=== PATIENT | female | born 1990 | race Caucasian/White ===

== ENCOUNTER 2023-11-25 09:07 | Outpatient (AMB) | payer BC, SELFPAY ==
[2023-11-25 09:13] VITALS: BP 118/78; PULSE 59; RESP 13; TEMP 36.6; O2SAT 99; BMI 24.4
--- NOTE | 2023-11-25 09:13 | A.OFFPC_ITS ---
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 JAWBONE BREAKER at [facility] in [facility] Last office visit/CPE: Aug 2022 Acute issue(s): Abd pain to L of Umbilicus. Intermittent L back & shoulder PMHx: Transgender, Hypothyroidism, anxiety, SurgHx: gender reassign, Tonsils FHx: Mom: DM, Dad: HTN, HLD. GF Lung CA SocHx: Nonsmoker, EtOH: 1 gl occassionally, No drugs PFSH Medical History (Updated 11/25/23 @ 09:49 by Carlos Pepe) Depression Anxiety Generalized headaches Shoulder injury Frequent urination Surgical History (Updated 11/25/23 @ 09:26 by DMITRY Nina) H/O vaginoplasty Hx of tonsillectomy Family History Mother Diabetes Father High blood pressure High cholesterol Maternal Grandmother Diabetes Paternal Grandmother Diabetes Maternal Grandfather Diabetes Cancer Paternal Grandfather Lung cancer Social History Housing: Apartment Alcohol intake: current Comment: wine Patient Tobacco Use Status: Never used Tobacco e-Cigarette/Vaping Use: Never Used Substance Use Type: Marijuana service: No Current occupational status: employed 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 1. Little interest or pleasure in doing things: several days 2. Feeling down, depressed, or hopeless: several days 3. Trouble falling or staying asleep, or sleeping too much: more than half the days 4. Feeling tired or having little energy: nearly every day 5. Poor appetite or overeating: not at all 6. Feeling bad about yourself - or that you are a failure or have let yourself or your family down: several days 7. Trouble concentrating on things, such as reading the newspaper or watching television: several days 8. Moving or speaking so slowly that other people could have noticed. Or the opposite - being so fidgety or restless that you have been moving around a lot more than usual: more than half the days 9. Thoughts that you would be better off or of hurting yourself in some way: not at all Total score: 11 Depression Screening Interpretation: Positive Depression Screening Follow-up: In treatment Depression Screening Done: Yes [id number] - PHQ-9 Billing: Yes Source: Developed by Drs. Krystian New, Lolita Herrera, Neville Maldonado and colleagues, with an educational elle from [email or web address]. Thrive Questionnaire Date Thrive assessed: 11/25/23 I am a: Patient What is your living situation today?: I have a steady place to live Within the past 12 months, did the food you bought not last and you didn't have the money to get more?: Never true Within the past 12 months, did you worry whether your food would run out before you got money to buy more?: Never true Do you have trouble paying for medicines?: No Do you have trouble getting transportation to medical appointments?: No Do you have trouble paying your heating and electricity bill?: No Do you have trouble taking care of your child, family member or friend?: No Do you have trouble with day-to-day activities such as bathing, preparing meals, shopping, managing finances, etc.?: No Are you currently unemployed and looking for a job?: No Are you interested in more education?: No Please select the resources that you would like help with: None Currently or been in a relationship where the following occur: no concerns reported THRIVE Score: 0 AUDIT C Alcohol Use Questionnaire (AUDIT-C) 1. How often do you have a drink containing alcohol?: Monthly or less 2. How many drinks containing alcohol do you have on a typical day when you are drinking?: 1 or 2 3. How often do you have six or more drinks on one occasion?: Never Total Score: 1 MARSHAL-7 AMB Questionnaire MARSHAL-7 Date MARSHAL - 7 assessed: 11/25/23 Feeling nervous, anxious, or on edge: 3 = Nearly every day Not being able to stop or control worryin = More than half the days Worrying too much about different things: 2 = More than half the days Trouble relaxin = Nearly every day Being so restless that it is hard to sit still: 3 = Nearly every day Becoming easily annoyed or irritable: 3 = Nearly every day Feeling afraid as if something awful might happen: 3 = Nearly every day Total MARSHAL-7 score (0-4 normal; 5-9 mild; 10-14 moderate; 15-21 severe): 19 Source: Developed by Drs. Krystian New, Lolita Herrera, Neville Maldonado and colleagues, with an educational elle from [email or web address]. MASRHAL-7 Assessment Billing MARSHAL-7 Assessment Tool: MARSHAL-7 Assessment 08211 Review of Systems Const Denies chills, Denies fatigue, Denies fever(s), Denies headache(s) and Denies weakness ENT Denies dizziness and Denies headache(s) Card Denies chest pain, Denies lightheadedness, Denies dyspnea and Denies other (Palpitations) Resp Denies cough, Denies dyspnea, Denies wheezing and Denies other ( shortness of breath) GI Reports abdominal pain (intermittent) Musc Denies numbness and Denies tingling Neuro Denies dizziness, Denies headache(s), Denies numbness, Denies tingling, Denies paresthesias and Denies weakness Psych Reports anxiety and Reports depression Endo Denies fatigue Aller/Immun Denies wheezing Physical exam (Primary Care) Vital Signs: Last Vital Signs Temp 97.8 F 11/25/23 09:13 Pulse 59 04/02/24 09:13 Resp 13 11/25/23 09:13 BP 118/78 11/25/23 09:13 Pulse Ox 99 11/25/23 09:13 Oxygen Delivery Method Room Air 11/25/23 09:13 BMI result Body Mass Index 24.4 Tobacco/Smoking Status: Tobacco use Status Tobacco use date assessed 11/25/23 11/25/23 09:24 Patient Tobacco Use Status Never used Tobacco 11/25/23 09:24 e-Cigarette/Vaping Use Never Used 11/25/23 09:24 PHQ-9: PHQ-9 Score PHQ-9: Total score 11 11/25/23 09:31 Depression Screening Interpretation: Positive Depression Screening Follow-up: In treatment Thrive Assessment: Date of Thrive Assessment Date Thrive assessed 11/25/23 11/25/23 09:31 Currently or been in a relationship where the following occur: no concerns reported Const General: no acute distress and well developed Nutritional Appearance: well nourished Orientation/consciousness: patient oriented x3 HENMT Head: Yes normocephalic and Yes atraumatic Eyes General: appearance normal, both eyes and all related structures Pupils: Equal, round and reactive pupils present EOM: EOMs intact bilaterally Resp Effort & Inspection: normal respiratory effort Auscultation: clear to auscultation bilaterally Cardio Rate: regular rate Rhythm: regular rhythm Heart sounds: S1 normal heart sound present, S2 normal heart sound present, no gallops, no murmurs and no rubs GI Other: Focal abdominal wall pain L of midline near umbillicus Mild impulse with cough/valsalva Neuro General: patient oriented x3 and gait normal Cranial nerves: Yes Equal, round and reactive pupils present Psych Affect: normal affect Assessment and Plan Assessment & Plan (1) Abdominal pain: Code(s): R10.9 - Unspecified abdominal pain Plan: Focal?abdominal?pain?to?left?midline?at?umbilicus?level Mild?impulse?with?cough/Valsalva Concern?for?hernia Check?lab Will?follow-up?next?visit (2) Strain of left subscapularis muscle: Code(s): S46.812A - Strain of other muscles, fascia and tendons at shoulder and upper arm level, left arm, initial encounter Plan: Start?physical?therapy (3) Frequent urination: Code(s): R35.0 - Frequency of micturition Plan: Check?UA?and?culture (4) Depression with anxiety: Code(s): F41.8 - Other specified anxiety disorders Plan: Follow-up?with?therapist We?will?reassess?at?next?visit (5) Transgender: Code(s): Z78.9 - Other specified health status Plan: Medications?provided?by?[facility] Stable (6) Shoulder pain: Code(s): M25.519 - Pain in unspecified shoulder Plan: Likely?recur?Left?subscapularis?strain Start?PT (7) Hypothyroidism: Code(s): E03.9 - Hypothyroidism, unspecified Plan: History?of?hypothyroidism Patient?says?she?was?on?thyroid?hormones?for?a?short?period?of?time?as?a?teen Check?thyroid?hormone?levels (8) Back pain: Code(s): M54.9 - Dorsalgia, unspecified Plan: As?above (9) Laboratory exam ordered as part of routine general medical examination: Code(s): Z00.00 - Encounter for general adult medical examination without abnormal findings Plan: Check?lab Orders: Orders Lipid Panel Today Z00.00 - Encounter for general adult medical examination without abnormal findings Microalbumin, Random (w Creat) Today I10 - Essential (primary) hypertension TSH reflex Free T4 Today Z00.00 - Encounter for general adult medical examination without abnormal findings UA and rflx microscopic Today Z00.00 - Encounter for general adult medical examination without abnormal findings CT NG by PCR Today Z11.3 - Encounter for screening for infections with a predominantly sexual mode of transmission HIV Ab/Ag Today Z11.3 - Encounter for screening for infections with a predominantly sexual mode of transmission Hepatitis B,C Profile Today Z11.3 - Encounter for screening for infections with a predominantly sexual mode of transmission Syphilis Screen Today Z11.3 - Encounter for screening for infections with a predominantly sexual mode of transmission PT Evaluation and Treatment Today S46.812A - Strain of other muscles, fascia and tendons at shoulder and upper arm level, left arm, initial encounter US abdomen limited Today R10.9 - Unspecified abdominal pain Comprehensive [place]. Panel Fast Today Z00.00 - Encounter for general adult medical examination without abnormal findings Complete Blood Count Auto Diff Today Z00.00 - Encounter for general adult medical examination without abnormal findings Urine Culture Today R35.0 - Frequency of micturition Coding Level of Care Code New Pt Level 4 (24063) Diagnoses Abdominal pain R10.9 Strain of left subscapularis muscle S46.812A Frequent urination R35.0 Depression with anxiety F41.8 Transgender Z78.9 Shoulder pain M25.519 Hypothyroidism E03.9 Back pain M54.9 Laboratory exam ordered as part of routine general medical examination Z00.00 Additional Codes MARSHAL-7 Assessment Billing - MARSHAL-7 Assessment Tool: MARSHAL-7 Assessment 09038 ([id number])
== END 2023-11-25 10:08 | disposition home or self-care (01) ==
PROVIDERS: PCP Family Medicine; Visit Provider Family Medicine
DX: R10.9 Unspecified abdominal pain (principal); S46.812A Strain of other muscles, fascia and tendons at shoulder and upper arm level, left arm, initial encounter; R35.0 Frequency of micturition; F41.8 Other specified anxiety disorders; Z78.9 Other specified health status; M25.519 Pain in unspecified shoulder; E03.9 Hypothyroidism, unspecified; M54.9 Dorsalgia, unspecified; Z00.00 Encounter for general adult medical examination without abnormal findings
CPT/HCPCS: 96127; 99204

== ENCOUNTER 2023-12-05 08:21 | Outpatient (REF) | payer BC, SELFPAY ==
--- NOTE | ~2023-12-05 | US_ITS ---
EXAMINATION: US ABDOMEN LIMITED CLINICAL INFORMATION: Unspecified abdominal pain. COMPARISON: None available. TECHNIQUE: Real-time imaging of the area left of midline near the umbilicus with right side for comparison. Valsalva maneuver is performed. FINDINGS: The cutaneous, subcutaneous, muscular and fascial planes are unremarkable. No mass or fluid collection is seen. There is no hernia defect noted. No lymphadenopathy is noted. No foreign body is seen. US/US abdomen limited IMPRESSION: Unremarkable examination.
== END 2023-12-05 08:22 | disposition home or self-care (01) ==
LOC: HO.US 08:21
PROVIDERS: PCP Family Medicine; Visit Provider Family Medicine
DX: R10.9 Unspecified abdominal pain (principal)
CPT/HCPCS: 76705

== ENCOUNTER 2023-12-08 10:34 | Outpatient (REF) | payer BC, SELFPAY ==
[2023-12-08 11:13] LABS: MANUAL DIFF FLAG NO
[2023-12-08 11:27] LABS: Basophils Percent Auto 0.7 % (0-2); Eosinophils Absolute Auto 0.2 X10*3/uL (0.0-0.4); Eosinophils Percent Auto 4.7 % (0-4); Hemoglobin 13.1 g/dl (12.0-16.0); Imm Gran Abs Auto 0.01 X10*3/uL (0.00-0.03); Imm Gran Pct Auto 0.2 % (0.0-0.4); Lymphocytes Absolute Auto 1.8 X10*3/uL (1.2-4.9); Mean Corpuscular HGB Conc 33.6 g/dl (31.0-35.0); Mean Corpuscular Hemoglobin 29.9 pg (27.0-33.0); Mean Platelet Volume 11.4 fL (9.4-12.3); Monocytes Absolute Auto 0.5 X10*3/uL (0.1-1.2); Monocytes Percent Auto 10.1 % (2-11); Neutrophils Percent Auto 44.3 % (45-73); Platelet Count 185 X10*3/uL (160-400); Red Blood Count 4.38 X10*6/uL (4.20-5.50); Red Cell Distribution Width 12.5 % (11.0-16.0); White Blood Count 4.5 X10*3/uL (4.8-10.8)
[2023-12-08 11:48] LABS: Alanine Aminotransferase 15 U/L (0-31); Albumin Level 4.3 g/dL (3.5-5.0); Alkaline Phosphatase 46 U/L (39-117); Anion Gap 9 (12-20); Aspartate Amino Transferase 15 U/L (5-31); Bilirubin Total 0.6 mg/dL (0.0-1.0); Blood Urea Nitrogen 13 mg/dL (9-16); Calcium 9.4 mg/dL (8.4-10.2); Carbon Dioxide 28 mmol/L (22-29); Chloride 107 mmol/L (96-108); Cholesterol 135 mg/dL (<200); Estimated Glomerular Filt Rate > 60; Glucose Fasting 84 mg/dL (60-99); HDL Cholesterol 61 mg/dL (>40); LDL Cholesterol Calculated 69 mg/dL (<100); Potassium 4.4 mmol/L (3.3-5.1); Sodium 140 mmol/L (135-145); Total Protein 6.7 g/dL (6.5-8.0); Triglycerides 29 mg/dL (<150)
[2023-12-08 12:02] LABS: Syphilis Screen Nonreactive (Nonreactive)
[2023-12-08 12:10] LABS: TSH reflex Free T4 3.38 uIU/mL (0.32-4.0)
[2023-12-08 13:57] LABS: Appearance Urine Clear; Color Urine Yellow; Glucose Urine UA Negative (Negative); Leukocyte Esterase Urine Negative (Negative); Nitrite Urine Negative (Negative); PH 6.5 (5.0-9.0); Urine Blood Negative (Negative); Urine Ketones Negative (Negative); Urine Protein Negative (Neg-Trace)
[2023-12-08 14:23] LABS: Creatinine Urine 62.08 mg/dL; Microalbumin Urine < 5.0 mg/L
[2023-12-09 08:38] LABS: HBc Num1 0.16 S/CO (0.00-0.79); HBsAGNum1 0.31 S/CO (0.00-0.99); HIV AB/AG Nonreactive (Nonreactive); HIV Num 1 0.07 S/CO (0.00-0.99); Hepatitis B Core Antibody Nonreactive (Nonreactive); Hepatitis B Surface Antigen Negative (Negative); ~HepC Num1 0.12 S/CO (0.00-0.79); ~Hepatitis B Surface Antibody NONREACTIVE (Nonreactive); ~Hepatitis C Antibody Nonreactive (Nonreactive)
== END 2023-12-08 10:35 | disposition home or self-care (01) ==
LOC: HO.WFDLDS 10:34
PROVIDERS: Visit Provider Family Medicine
DX: Z00.00 Encounter for general adult medical examination without abnormal findings (principal); Z11.4 Encounter for screening for human immunodeficiency virus [HIV]; I10 Essential (primary) hypertension; R35.0 Frequency of micturition
CPT/HCPCS: 36415; 80053; 80061; 81003; 82043; 82570; 84443; 85025; 86704; 86706; 86780; 86803; 87086; 87340; 87389

== ENCOUNTER 2024-01-02 09:42 | Outpatient (AMB) | payer BC, SELFPAY ==
--- NOTE | 2024-01-02 10:03 | MHC.PC.OV ---
Vital Signs 01/02/24 10:04 Height 6 ft 1 in Weight 185 lb BMI 24.4 BP 116/70 Blood Pressure Location Lt brachial Position Sitting Pulse 63 Pulse Source Pulse Oximeter Pulse Oximetry (%) 100 Intake Visit Reasons: CPE follow up labs and health maintenance Intake Note: Patient is here for physical and to follow up on labs. Allergies peanuts Allergy (Uncoded 11/25/23 09:19) Itching Medication List - Last Reconciled 01/02/24 by Colt Fine MD estradiol cypionate 2 mg IM .QWK progesterone micronized 100 mg PO QAM Tobacco use date assessed: 01/02/24 Dental Screening Dental Screen Date: 11/25/23 HPI CPE follow up labs and health maintenance HPI Details 33-year-old?female?presents?for?complete?physical?exam Reviewed?labs?with?patient All?labs?are?okay Reviewed?ultrasound?with?patient.??She?has?supra?umbilical?abdominal?wall?discomfort.??Ultrasound?was?negative?for?hernia?though?she?still?has?a?palpable?rectus?muscle?lump. Still?has?some?scapular?muscle?pain?but?this?is?improving. [facility] Medical History (Updated 01/02/24 @ 11:01 by Colt Fine MD) Depression Anxiety Generalized headaches Shoulder injury Frequent urination Surgical History (Updated 11/25/23 @ 09:26 by DMITRY Nina) H/O vaginoplasty Hx of tonsillectomy Family History Mother Diabetes Father High blood pressure High cholesterol Maternal Grandmother Diabetes Paternal Grandmother Diabetes Maternal Grandfather Diabetes Cancer Paternal Grandfather Lung cancer Social History (Updated 11/25/23 @ 09:54 by Barbra Donaldson CMA) Housing: Apartment Alcohol intake: current Comment: wine Patient Tobacco Use Status: Never used Tobacco e-Cigarette/Vaping Use: Never Used Substance Use Type: Marijuana service: No Current occupational status: employed 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 Krystian New, Lolita Herrera, Neville Maldonado and colleagues, with an educational elle from [employer]. Review of Systems Const Denies chills, Denies fatigue, Denies fever(s), Denies headache(s) and Denies weakness Eyes Denies change in vision ENT Denies dizziness, Denies headache(s), Denies hearing loss, Denies nasal congestion, Denies sinus pain, Denies sinus pressure and Denies sore throat Card Details: Intermittent?chest?pain.??Patient?is?uncertain?if?this?is?associated?with?exertion but?sometimes?happens?with?exertion?and?sometimes?without. Reports chest pain, Denies lightheadedness, Denies dyspnea and Denies other (palpitations) Resp Denies cough, Denies dyspnea and Denies wheezing GI Reports abdominal pain (Ongoing?superficial?midline?abdominal?discomfort?above?umbilicus.?), Denies melena, Denies hematochezia, Denies change in bowel habits, Denies dyspepsia and Denies nausea Denies hematuria and Denies dysuria Musc Denies abnormal gait, Denies myalgias, Denies arthralgias, Denies numbness and Denies tingling Skin/Breast Denies rash, Denies unusual bruising and Denies wounds Neuro Denies abnormal gait, Denies dizziness, Denies headache(s), Denies memory loss, Denies numbness, Denies Sensory deficit (Neuro), Denies tingling and Denies weakness Psych Denies anxiety, Denies depression and Denies memory loss Endo Denies cold intolerance, Denies fatigue, Denies heat intolerance, Denies polydipsia and Denies polyuria Shon/Lymph Denies easy bleeding and Denies easy bruising Aller/Immun Denies wheezing Physical exam (Primary Care) Vital Signs: Last Vital Signs Pulse 63 01/02/24 10:04 BP 116/70 01/02/24 10:04 Pulse Ox 100 01/02/24 10:04 BMI result Body Mass Index 24.4 Tobacco/Smoking Status: Tobacco use Status Tobacco use date assessed 01/02/24 01/02/24 10:08 Patient Tobacco Use Status Never used Tobacco 01/02/24 10:04 e-Cigarette/Vaping Use Never Used 01/02/24 10:04 Thrive Assessment: Date of Thrive Assessment Date Thrive assessed 11/25/23 01/02/24 10:04 Const General: no acute distress, well developed, alert and awake Nutritional Appearance: well nourished Orientation/consciousness: patient oriented x3 [facility] Head: Yes normocephalic and Yes atraumatic Ears: hearing grossly normal bilaterally and TM's normal bilaterally General nose exam: Normal external nose present and Normal nares present Mouth: Normal oral and palatal mucosa present and moist mucous membranes Teeth and gingiva: dentition normal Throat: Yes posterior oropharynx normal Eyes Pupils: Equal, round and reactive pupils present and Pupil accommodation reflex normal EOM: EOMs intact bilaterally Neck Neck: Yes normal visual inspection, Yes no lymphadenopathy and Yes trachea midline Thyroid: Thyroid normal Carotids: no bruits Lymphatic: no lymphadenopathy noted Chest Chest palpation & inspection: normal inspection of the chest Resp Effort & Inspection: normal respiratory effort Auscultation: clear to auscultation bilaterally Cardio Rate: regular rate Rhythm: regular rhythm Heart sounds: S1 normal heart sound present, S2 normal heart sound present, no gallops, no murmurs and no rubs Bruits: no abdominal aortic bruits and no carotid bruits GI Other: Periumbilical/supra?umbilical?abdominal?wall?tenderness?with?rectus?muscle?lump?which?is?accentuated?by?Valsalva/cough. Palpation (GI): No Abdominal aortic bruit present, Soft to palpation, No hepatosplenomegaly present and No Rebound tenderness present Auscultation: normal bowel sounds General: Yes no CVA tenderness Back/Spine/Pelvis Back: no CVA tenderness Cervical Spine: cervical ROM normal and No Cervical spine tenderness Thoracic/Lumbar Spine: thoraco-lumbar ROM normal, No pain with thoraco-lumbar ROM, No thoracic spinal tenderness and No lumbar spinal tenderness Skin Lesions: no lesions Rashes: no rashes Trauma: no lacerations or abrasions Wounds: no wounds Nails: normal Neuro General: patient oriented x3, gait normal and CN's II-XI intact bilaterally Cranial nerves: Yes Equal, round and reactive pupils present Cognition (Neuro): normal cognition Gait exam (Neuro): Normal gait present Motor exam (neuro): 5/5 motor strength present throughout Sensory Exam: No Sensory deficit (Neuro) Deep tendon reflexes (DTR's): Right patellar reflex intensity grade: 2+ and Left patellar reflex intensity grade: 2+ Extrem General: Yes normal to inspection and No edema Psych Appearance: grossly normal Affect: normal affect Attitude: cooperative Thought process: Normal thought process present Assessment and Plan Assessment & Plan (1) Adult general medical exam: Code(s): Z00.00 - Encounter for general adult medical examination without abnormal findings Plan: 33-year-old?female?presents?for complete?physical?exam Patient?noted?a?history?of?hypothyroidism?and?brief?use?of?thyroid?medication?in?the?distant?past. No?longer?on?this?medication. Her?TSH?is?within?normal?limits (2) Chest pain: Code(s): R07.9 - Chest pain, unspecified Plan: Patient?had?vague?complaints?of?chest?pain. EKG: ?Sinus?bradycardia,?normal?axis,?no?hypertrophy,?no?ST-T-wave?changes. Reassured?patient (3) Depression with anxiety: Code(s): F41.8 - Other specified anxiety disorders Plan: Patient?has?a?therapist (4) Transgender: Code(s): Z78.9 - Other specified health status Plan: Stable?on?estradiol?and?progesterone Continue?current?regimen (5) Shoulder pain: Code(s): M25.519 - Pain in unspecified shoulder Plan: Prior?complaint?of?back?and?shoulder?pain?and?had?referred?her?for?physical?therapy. She?has?an?appointment?but?not?until?March.??However?her?pain?has?been?improving. (6) Abdominal pain: Code(s): R10.9 - Unspecified abdominal pain Plan: Periumbilical?pain with?an?apparent?rectus?abdominis?muscle?deformity?or?lump. Ultrasound?was?negative?for?hernia?but?abnormality?persists?to?palpation?and?patient?still?has?pain. Will?refer?her?to?general?surgery?for?evaluation. Orders: Referrals General Surgery Referral R10.9 - Unspecified abdominal pain Coding Level of Care Code Est Pt Prev Care 18-39y(00128) Diagnoses Adult general medical exam Z00.00 Chest pain R07.9 Depression with anxiety F41.8 Transgender Z78.9 Shoulder pain M25.519 Abdominal pain R10.9
[2024-01-02 10:04] VITALS: BP 116/70; PULSE 63; O2SAT 100; BMI 24.4
== END 2024-01-02 11:17 | disposition home or self-care (01) ==
PROVIDERS: PCP Family Medicine; Visit Provider Family Medicine
DX: Z00.00 Encounter for general adult medical examination without abnormal findings (principal); R07.9 Chest pain, unspecified; F41.8 Other specified anxiety disorders; Z78.9 Other specified health status; M25.519 Pain in unspecified shoulder; R10.9 Unspecified abdominal pain
CPT/HCPCS: 99395

== ENCOUNTER 2024-02-10 12:37 | Outpatient (AMB) | payer BC, SELFPAY ==
--- NOTE | 2024-02-10 12:39 | A.OFFVIS_ITS ---
Vital Signs 02/10/24 12:40 Height 6 ft 1 in Weight 183 lb BMI 24.1 BP 115/57 L Blood Pressure Location Rt brachial Position Sitting Pulse 91 Intake Visit Reasons: stomach pain Intake Note: This patient presents for an assessment for abdominal pain. Patient c/o; reports sharp pain near navel, reports intermittent, reports no nausea or vomiting, reports healthy weight loss, reports pain on the left shoulder which radiates towards left groin. Voice Intercept Technician Required: No Accompanied by: Self / Same As Patient Allergies peanuts Allergy (Uncoded 02/10/24 12:53) Itching HPI Comments Details: Patient presents for evaluation of left mid abdominal wall discomfort which has been going on and off for the last year. She has no other GI issues or complaints though she has occasional constipation. Never had colonoscopy before. Patient had an ultrasound of the abdominal wall was demonstrated no obvious hernias or defects Patient does occasional workouts where the discomfort is aggravated. Although not system, patient states she had an ultrasound of her gallbladder in [place] which demonstrated cholelithiasis but her symptoms are not right upper quadrant or epigastric greater around to her back. She has no fatty food intolerance per se. Chart was reviewed and patient evaluated. Patient states she is ?trans ? [facility] Medical History Depression Anxiety Generalized headaches Shoulder injury Frequent urination Surgical History H/O vaginoplasty Hx of tonsillectomy Family History Mother Diabetes Father High blood pressure High cholesterol Maternal Grandmother Diabetes Paternal Grandmother Diabetes Maternal Grandfather Diabetes Cancer Paternal Grandfather Lung cancer Social History Housing: Apartment Alcohol intake: current Comment: wine Patient Tobacco Use Status: Never used Tobacco e-Cigarette/Vaping Use: Never Used Substance Use Type: Marijuana service: No Current occupational status: employed 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 Abdomen is soft, benign. Very very small umbilical hernia palpated. No groin hernia demonstrated. Genitalia was not reveal so could not evaluate. Assessment & Plan Assessment & Plan (1) Abdominal wall pain: Code(s): R10.9 - Unspecified abdominal pain Category: Surgical Plan At present, no acute surgical issues were identified. Her symptoms may be related to abdominal wall strain from strenuous activities. Recommendation is to avoid any aggravating activities and take Tylenol or Motrin as needed. Patient we recommended recommended to follow up with her medical doctor. Should her symptoms progress or worsen, consider GI consultation. All questions answered. Patient will otherwise follow-up p.r.n.. Coding Level of Care Code New Pt Level 4 (87616) Diagnoses Abdominal wall pain R10.9
[2024-02-10 12:40] VITALS: BP 115/57; PULSE 91; BMI 24.1
== END 2024-02-10 13:22 | disposition home or self-care (01) ==
PROVIDERS: PCP Family Medicine; Visit Provider Surgery
DX: R10.9 Unspecified abdominal pain (principal)
CPT/HCPCS: 99203

== ENCOUNTER → 2024-02-10 12:37 | Outpatient (BNVA) | payer BC, SELFPAY | PROVIDERS: PCP Family Medicine; Visit Provider Surgery ==

== ENCOUNTER 2024-05-21 15:50 | Outpatient (AMB) | payer BC, SELFPAY ==
--- NOTE | 2024-05-21 16:02 | A.OFFPC_ITS ---
Vital Signs 05/21/24 16:05 Height 6 ft 1 in Weight 189 lb BMI 24.9 BP 110/70 Blood Pressure Location Lt brachial Position Sitting Respiration 16 Pulse 75 Pulse Source Pulse Oximeter Temp 98.1 F Temp Source Oral Pulse Oximetry (%) 100 Oxygen Delivery Method Room Air Intake Visit Reasons: Anxiety Intake Note: anxiety f/u Allergies peanuts Allergy (Uncoded 02/10/24 12:53) Itching Medication List - Last Reconciled 05/21/24 by Colt Fine MD estradiol cypionate 2 mg IM .QWK progesterone micronized 100 mg PO QAM Tobacco use date assessed: 01/02/24 Dental Screening Dental Screen Date: 11/25/23 HPI Anxiety HPI Details 33 y/o female presents today to f/u depr ession/anxiety. Not on any meds for mood. PHQ-9 14, MARSHAL-7 16 today. Notes she has been getting panic attacks more often recently. She notes panic attacks happen about once a week. She notices it happens a lot more when she has difficulty sleeping. She reports chest discomfort that lasts about 15 minutes. She notes she tends to notice it during exertion. HPI Comments History of Present Illness Details Documentation assistance for Colt Fine MD, was provided by Carlos Pepe, Special Needs Librarian on 05/21/2024 at 5:00 PM EST. I, Dr. Fine, have read, observed, and verified documentation. [facility] Medical History Depression Anxiety Generalized headaches Shoulder injury Frequent urination Surgical History H/O vaginoplasty Hx of tonsillectomy Family History Mother Diabetes Father High blood pressure High cholesterol Maternal Grandmother Diabetes Paternal Grandmother Diabetes Maternal Grandfather Diabetes Cancer Paternal Grandfather Lung cancer Social History Housing: Apartment Alcohol intake: current Comment: wine Patient Tobacco Use Status: Never used Tobacco e-Cigarette/Vaping Use: Never Used Substance Use Type: Marijuana service: No Current occupational status: employed Current occupation: [employer] Cognitive needs: No Hearing needs: No Vision needs: No Questionnaire PHQ-9 Over the last 2 weeks, how often have you been bothered by any of the following problems? 1. Little interest or pleasure in doing things: nearly every day 2. Feeling down, depressed, or hopeless: more than half the days 3. Trouble falling or staying asleep, or sleeping too much: nearly every day 4. Feeling tired or having little energy: more than half the days 5. Poor appetite or overeating: more than half the days 6. Feeling bad about yourself - or that you are a failure or have let yourself or your family down: more than half the days 7. Trouble concentrating on things, such as reading the newspaper or watching television: not at all 8. Moving or speaking so slowly that other people could have noticed. Or the opposite - being so fidgety or restless that you have been moving around a lot more than usual: not at all 9. Thoughts that you would be better off or of hurting yourself in some way: not at all Total score: 14 Depression Screening Interpretation: Positive Depression Screening Done: Yes 27433 - PHQ-9 Billing: Yes Source: Developed by Drs. Krystian New, Lolita Herrera, Neville Maldonado and colleagues, with an educational elle from [employer]. Thrive Questionnaire Date Thrive assessed: 11/25/23 MARSHAL-7 AMB Questionnaire MARSHAL-7 Date MARSHAL - 7 assessed: 05/21/24 Feeling nervous, anxious, or on edge: 3 = Nearly every day Not being able to stop or control worryin = Nearly every day Worrying too much about different things: 3 = Nearly every day Trouble relaxin = Nearly every day Being so restless that it is hard to sit still: 0 = Not at all Becoming easily annoyed or irritable: 2 = More than half the days Feeling afraid as if something awful might happen: 2 = More than half the days Total MARSHAL-7 score (0-4 normal; 5-9 mild; 10-14 moderate; 15-21 severe): 16 Source: Developed by Drs. Krystian New, Lolita Herrera, Neville Maldonado and colleagues, with an educational elle from [employer]. MARSHAL-7 Assessment Billing MARSHAL-7 Assessment Tool: MARSHAL-7 Assessment 85489 Review of Systems Const Denies chills, Denies fatigue, Denies fever(s), Denies headache(s) and Denies weakness ENT Denies dizziness and Denies headache(s) Card Denies dyspnea Resp Denies cough, Denies dyspnea, Denies wheezing and Denies other (shortness of breath) Musc Denies numbness and Denies tingling Neuro Denies dizziness, Denies headache(s), Denies numbness, Denies tingling and Denies weakness Psych Reports anxiety and Reports depression Endo Denies fatigue Aller/Immun Denies wheezing Physical exam (Primary Care) Vital Signs: Last Vital Signs Temp 98.1 F 05/21/24 16:05 Pulse 75 05/21/24 16:05 Resp 16 05/21/24 16:05 BP 110/70 05/21/24 16:05 Pulse Ox 100 05/21/24 16:05 Oxygen Delivery Method Room Air 05/21/24 16:05 BMI result Body Mass Index 24.9 Tobacco/Smoking Status: Tobacco use Status Tobacco use date assessed 01/02/24 05/21/24 16:08 Patient Tobacco Use Status Never used Tobacco 05/21/24 16:08 e-Cigarette/Vaping Use Never Used 05/21/24 16:08 PHQ-9: PHQ-9 Score PHQ-9: Total score 14 05/21/24 16:08 Depression Screening Interpretation: Positive Thrive Assessment: Date of Thrive Assessment Date Thrive assessed 11/25/23 05/21/24 16:08 Const General: well developed; No acute distress Nutritional Appearance: well nourished Orientation/consciousness: patient oriented x3 HENMT Head: Yes normocephalic and Yes atraumatic Eyes General: appearance normal, both eyes and all related structures Pupils: Equal, round and reactive pupils present EOM: EOMs intact bilaterally Resp Effort & Inspection: normal respiratory effort Auscultation: clear to auscultation bilaterally Cardio Rate: regular rate Rhythm: regular rhythm Heart sounds: S1 normal heart sound present, S2 normal heart sound present, no gallops, no murmurs and no rubs Neuro General: patient oriented x3 and gait normal Cranial nerves: Yes Equal, round and reactive pupils present Psych Affect: normal affect Assessment and Plan Assessment & Plan (1) Depression with anxiety: Code(s): F41.8 - Other specified anxiety disorders Plan: History?of?anxiety?and?depression. More?recently?getting?bouts?of?severe?anxiety/panic. Patient?feels?that?the?anxiety?is?generated?from?somatic?se nsations.??Will?trial?some?metoprolol. Can?try?hydroxyzine?for?more?severe?anxiety/panic Patient?has?tried?SSRIs?in?the?past?and?these?caused?GI?discomfort.??Could?consi shahab?revisiting?with?a?different?SSRI?if?the?above?is?not?helping. She?has?a?therapist?whom?she?sees?twice?a?week.??Continue?following?with?therapi st. (2) Chest pain: Code(s): R07.9 - Chest pain, unspecified Plan: Intermittent?chest?wall?pain that?last?a?few?minutes.??Can?be?associated?with?exertion?or emotional?stress. Cardiac?auscultation?normal.??Lungs?clear?to?auscultation EKG:??Normal?sinus?rhythm,?normal?axis,?no?hypertrophy,?no?ST-T-wave?changes This?does?not?appear?to?be?cardiac?in?nature.??Reassured?patient. Orders: Orders AMB EKG-In Office Today R07.9 - Chest pain, unspecified Medications: New hydroxyzine HCl 50 mg PO BID 30 days PRN 30 tabs 1RF anxiety metoprolol succinate ER 1/2 (12.5mg) to 1 (25mg) tab orally daily PRN; 30 days 30 tabs 1RF anxiety Coding Level of Care Code Est Pt Level 3 (42474) Diagnoses Depression with anxiety F41.8 Chest pain R07.9 Additional Codes MARSHAL-7 Assessment Billing - MARSHAL-7 Assessment Tool: MARSHAL-7 Assessment [id number] ([id number])
[2024-05-21 16:05] VITALS: BP 110/70; PULSE 75; RESP 16; TEMP 36.7; O2SAT 100; BMI 24.9
== END 2024-05-21 17:09 | disposition home or self-care (01) ==
PROVIDERS: PCP Family Medicine; Visit Provider Family Medicine
DX: F41.8 Other specified anxiety disorders (principal); R07.9 Chest pain, unspecified

== ENCOUNTER → 2024-05-21 15:50 | Outpatient (BNVA) | payer BC, SELFPAY | PROVIDERS: PCP Family Medicine; Visit Provider Family Medicine | DX: F41.8 Other specified anxiety disorders (principal); R07.9 Chest pain, unspecified | CPT/HCPCS: 96127 ==

== ENCOUNTER 2024-07-01 15:13 | Outpatient (AMB) | payer BC, SELFPAY ==
--- NOTE | 2024-07-01 15:28 | MHC.PC.OV ---
Vital Signs 07/01/24 15:33 Height 6 ft 1 in Weight 187 lb BMI 24.7 BP 100/66 Blood Pressure Location Lt brachial Position Sitting Respiration 14 Pulse 69 Pulse Source Pulse Oximeter Temp 98.7 F Temp Source Oral Pulse Oximetry (%) 99 Oxygen Delivery Method Room Air Intake Visit Reasons: f/u anxiety/depression Intake Note: f/u anxiety/depression Allergies peanuts Allergy (Uncoded 07/01/24 15:29) Itching Tobacco use date assessed: 01/02/24 Dental Screening Dental Screen Date: 11/25/23 HPI f/u anxiety/depression HPI Details 33 y/o female presents to f/u anxiety/depression. PHQ-9 10, MARSHAL-7 20 today. Notes she does not feel her medication regimen has been helping. Has a therapist but does not have a psychiatrist. Has complaints of ?silvana Kaur [facility] Medical History Depression Anxiety Generalized headaches Shoulder injury Frequent urination Surgical History H/O vaginoplasty Hx of tonsillectomy Family History Mother Diabetes Father High blood pressure High cholesterol Maternal Grandmother Diabetes Paternal Grandmother Diabetes Maternal Grandfather Diabetes Cancer Paternal Grandfather Lung cancer Social History Housing: Apartment Alcohol intake: current Comment: wine Patient Tobacco Use Status: Never used Tobacco e-Cigarette/Vaping Use: Never Used Substance Use Type: Marijuana service: No Current occupational status: employed 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 1. Little interest or pleasure in doing things: several days 2. Feeling down, depressed, or hopeless: several days 3. Trouble falling or staying asleep, or sleeping too much: more than half the days 4. Feeling tired or having little energy: nearly every day 5. Poor appetite or overeating: several days 6. Feeling bad about yourself - or that you are a failure or have let yourself or your family down: several days 7. Trouble concentrating on things, such as reading the newspaper or watching television: several days 8. Moving or speaking so slowly that other people could have noticed. Or the opposite - being so fidgety or restless that you have been moving around a lot more than usual: not at all 9. Thoughts that you would be better off or of hurting yourself in some way: not at all Total score: 10 Depression Screening Interpretation: Positive Depression Screening Done: Yes 26726 - PHQ-9 Billing: Yes Source: Developed by Drs. Krystian New, Lolita Herrera, Neville Maldonado and colleagues, with an educational elle from [employer]. Thrive Questionnaire Date Thrive assessed: 11/25/23 I am a: Patient What is your living situation today?: I have a steady place to live Within the past 12 months, did the food you bought not last and you didn't have the money to get more?: Never true Within the past 12 months, did you worry whether your food would run out before you got money to buy more?: Never true Do you have trouble paying for medicines?: No Do you have trouble getting transportation to medical appointments?: No Do you have trouble paying your heating and electricity bill?: No Do you have trouble taking care of your child, family member or friend?: No Do you have trouble with day-to-day activities such as bathing, preparing meals, shopping, managing finances, etc.?: No Are you currently unemployed and looking for a job?: No Are you interested in more education?: I choose not to answer this question Please select the resources that you would like help with: None Currently or been in a relationship where the following occur: No concerns reported THRIVE Score: 0 AUDIT C Alcohol Use Questionnaire (AUDIT-C) 1. How often do you have a drink containing alcohol?: Never Total Score: 0 MARSHAL-7 AMB Questionnaire MARSHAL-7 Date MARSHAL - 7 assessed: 07/01/24 Feeling nervous, anxious, or on edge: 3 = Nearly every day Not being able to stop or control worryin = Nearly every day Worrying too much about different things: 3 = Nearly every day Trouble relaxin = Nearly every day Being so restless that it is hard to sit still: 3 = Nearly every day Becoming easily annoyed or irritable: 2 = More than half the days Feeling afraid as if something awful might happen: 3 = Nearly every day Total MARSHAL-7 score (0-4 normal; 5-9 mild; 10-14 moderate; 15-21 severe): 20 Source: Developed by Drs. Krystian New, Lolita Herrera, Neville Maldonado and colleagues, with an educational elle from [employer]. MARSHAL-7 Assessment Billing MARSHAL-7 Assessment Tool: MARSHAL-7 Assessment 28518 Review of Systems Const Denies chills, Denies fatigue, Denies fever(s), Denies headache(s) and Denies weakness ENT Denies dizziness and Denies headache(s) Card Denies chest pain, Denies lightheadedness, Denies dyspnea and Denies other (Palpitations) Resp Denies cough, Denies dyspnea, Denies wheezing and Denies other ( shortness of breath) Musc Denies numbness and Denies tingling Neuro Denies dizziness, Denies headache(s), Denies numbness, Denies tingling, Denies paresthesias and Denies weakness Psych Denies anxiety and Denies depression Endo Denies fatigue Aller/Immun Denies wheezing Physical exam (Primary Care) Vital Signs: Last Vital Signs Temp 98.7 F 07/01/24 15:33 Pulse 69 07/01/24 15:33 Resp 14 07/01/24 15:33 BP 100/66 07/01/24 15:33 Pulse Ox 99 07/01/24 15:33 Oxygen Delivery Method Room Air 07/01/24 15:33 BMI result Body Mass Index 24.7 Tobacco/Smoking Status: Tobacco use Status Tobacco use date assessed 01/02/24 07/01/24 15:36 Patient Tobacco Use Status Never used Tobacco 07/01/24 15:36 e-Cigarette/Vaping Use Never Used 07/01/24 15:36 PHQ-9: PHQ-9 Score PHQ-9: Total score 10 07/01/24 15:36 Depression Screening Interpretation: Positive Thrive Assessment: Date of Thrive Assessment Date Thrive assessed 11/25/23 07/01/24 15:36 Currently or been in a relationship where the following occur: No concerns reported Const General: no acute distress and well developed Nutritional Appearance: well nourished Orientation/consciousness: patient oriented x3 [facility] Head: Yes normocephalic and Yes atraumatic Eyes General: appearance normal, both eyes and all related structures Pupils: Equal, round and reactive pupils present EOM: EOMs intact bilaterally Resp Effort & Inspection: normal respiratory effort Auscultation: clear to auscultation bilaterally Cardio Rate: regular rate Rhythm: regular rhythm Heart sounds: S1 normal heart sound present, S2 normal heart sound present, no gallops, no murmurs and no rubs Neuro General: patient oriented x3 and gait normal Cranial nerves: Yes Equal, round and reactive pupils present Psych Affect: normal affect Coding Level of Care Code Est Pt Level 3 (34536) Diagnoses Depression with anxiety F41.8 Raynauds phenomenon I73.00 Additional Codes MARSHAL-7 Assessment Billing - MARSHAL-7 Assessment Tool: MARSHAL-7 Assessment [id number] ([id number]) PHQ-9 - 45479 - PHQ-9 Billing: Yes ([id number]) Assessment & Plan Assessment & Plan (1) Depression with anxiety: Code(s): F41.8 - Other specified anxiety disorders Category: Medical Plan: Ongoing?depression?and?severe?anxiety. Patient?has?tried?SSRIs?in?the?past?without?much?help. Recently?tried?metoprolol?with?only?minimal?improvements.??Also?give?her?a?script?for?hydroxyzine?which?makes?her?too?drowsy. Will?try?buspirone We?also?briefly?discuss?second-generation?antipsychotic?and?we?could?consider?something?like?this?at?next?visit?if?the?buspirone?is?working.??However,?I?did?suggest?that?if?we?still?have?not?found?a?medication?that?is?working?by?her?next?visit, we?should?consider?a?referral?to?[facility]?psychiatric?consult?team?to?help?with?medication?management. (2) Raynauds phenomenon: Code(s): I73.00 - Raynaud's syndrome without gangrene Category: Medical Plan: Fairly?mild?symptoms?which?improve?quickly?with?warming?hands?and?feet Keep?hands?and?feet?warm.??Use?moisturizing?creams. Medications: New buspirone 5 mg PO BID 30 days 60 tabs 2RF Discontinued metoprolol succinate ER Discontinued Reason: Doctor's Order 1/2 (12.5mg) to 1 (25mg) tab orally daily PRN; 30 days 30 tabs 1RF anxiety
[2024-07-01 15:33] VITALS: BP 100/66; PULSE 69; RESP 14; TEMP 37.1; O2SAT 99; BMI 24.7
== END 2024-07-01 16:06 | disposition home or self-care (01) ==
LOC: HO.HMCFM 15:14
PROVIDERS: PCP Family Medicine; Visit Provider Family Medicine
DX: F41.8 Other specified anxiety disorders (principal); I73.00 Raynaud's syndrome without gangrene

== ENCOUNTER → 2024-07-01 15:13 | Outpatient (BNVA) | payer BC, SELFPAY | PROVIDERS: PCP Family Medicine; Visit Provider Family Medicine | DX: F41.8 Other specified anxiety disorders (principal); I73.00 Raynaud's syndrome without gangrene | CPT/HCPCS: 96127 ==

== ENCOUNTER 2024-08-31 15:30 | Outpatient (AMB) | payer BC, SELFPAY ==
--- NOTE | 2024-08-31 15:35 | A.OFFPC_ITS ---
Vital Signs 08/31/24 15:42 Height 6 ft 1 in Weight 192 lb 6 oz BMI 25.4 BP 120/70 Blood Pressure Location Rt brachial Position Sitting Respiration 14 Pulse 78 Pulse Source Pulse Oximeter Temp 97.9 F Temp Source Oral Pulse Oximetry (%) 98 Oxygen Delivery Method Room Air Intake Visit Reasons: f/u anxiety/depression (GET INS) Intake Note: f/u anxiety and depression Allergies peanuts Allergy (Uncoded 07/01/24 15:29) Itching Tobacco use date assessed: 01/02/24 Dental Screening Dental Screen Date: 11/25/23 HPI f/u anxiety/depression (GET INS) HPI Details MARSHAL- 7?still?high?but?patient?says?they?are?noticing?improvements?with?buspirone. Would?like?to?continue?it No?current?therapist?and?we?discussed?this?though?patient?declines?this?for?now Ongoing?left?lower?quadrant?pain. Patient?still?notes?they?have?not?been?great?about?drinking?water .??Have?not?tried?soluble?fiber. Had?made?a?referral?to?gastroenterology?but?the?provider?is?no?longer?practicing ?in?the?area?so?appointment?was?canceled?and?never?rescheduled. Patient?would?like?a?new?referral?preferably?in?the[place]area. Patient?also?notes?ongoing dysuria?with?urgency?and?frequency Had?worked?this?up?previously. Patient?would?like?referral?to?urology [facility] Medical History Depression Anxiety Generalized headaches Shoulder injury Frequent urination Surgical History H/O vaginoplasty Hx of tonsillectomy Family History Mother Diabetes Father High blood pressure High cholesterol Maternal Grandmother Diabetes Paternal Grandmother Diabetes Maternal Grandfather Diabetes Cancer Paternal Grandfather Lung cancer Social History (Reviewed 02/10/24 @ 12:54 by Yomaira Cox Nai Housing: Apartment Alcohol intake: current Comment: wine Patient Tobacco Use Status: Never used Tobacco e-Cigarette/Vaping Use: Never Used Substance Use Type: Marijuana service: No Current occupational status: employed 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 1. Little interest or pleasure in doing things: several days 2. Feeling down, depressed, or hopeless: several days 3. Trouble falling or staying asleep, or sleeping too much: more than half the days 4. Feeling tired or having little energy: more than half the days 5. Poor appetite or overeating: several days 6. Feeling bad about yourself - or that you are a failure or have let yourself or your family down: several days 7. Trouble concentrating on things, such as reading the newspaper or watching television: more than half the days 8. Moving or speaking so slowly that other people could have noticed. Or the opposite - being so fidgety or restless that you have been moving around a lot more than usual: not at all 9. Thoughts that you would be better off or of hurting yourself in some way: not at all Total score: 10 Depression Screening Interpretation: Positive Depression Screening Done: Yes 60367 - PHQ-9 Billing: Yes Source: Developed by Drs. Krystian New, Lolita Herrera, Neville Maldonado and colleagues, with an educational elle from [employer]. Thrive Questionnaire Date Thrive assessed: 11/25/23 I am a: Patient What is your living situation today?: I have a steady place to live Within the past 12 months, did the food you bought not last and you didn't have the money to get more?: Never true Within the past 12 months, did you worry whether your food would run out before you got money to buy more?: Never true Do you have trouble paying for medicines?: No Do you have trouble getting transportation to medical appointments?: No Do you have trouble paying your heating and electricity bill?: No Do you have trouble taking care of your child, family member or friend?: No Do you have trouble with day-to-day activities such as bathing, preparing meals, shopping, managing finances, etc.?: No Are you currently unemployed and looking for a job?: No Are you interested in more education?: No Please select the resources that you would like help with: None Currently or been in a relationship where the following occur: No concerns reported THRIVE Score: 0 AUDIT C Alcohol Use Questionnaire (AUDIT-C) 1. How often do you have a drink containing alcohol?: Monthly or less 2. How many drinks containing alcohol do you have on a typical day when you are drinking?: 1 or 2 3. How often do you have six or more drinks on one occasion?: Never Total Score: 1 MARSHAL-7 AMB Questionnaire MARSHAL-7 Date MARSHAL - 7 assessed: 08/31/24 Feeling nervous, anxious, or on edge: 2 = More than half the days Not being able to stop or control worryin = More than half the days Worrying too much about different things: 2 = More than half the days Trouble relaxin = More than half the days Being so restless that it is hard to sit still: 2 = More than half the days Becoming easily annoyed or irritable: 2 = More than half the days Feeling afraid as if something awful might happen: 3 = Nearly every day Total MARSHAL-7 score (0-4 normal; 5-9 mild; 10-14 moderate; 15-21 severe): 15 Source: Developed by Drs. Krystian New, Lolita Herrera, Neville Maldonado and colleagues, with an educational elle from [employer]. Review of Systems Const Denies chills, Denies fatigue, Denies fever(s), Denies headache(s) and Denies weakness ENT Denies dizziness and Denies headache(s) Card Denies dyspnea Resp Denies cough, Denies dyspnea, Denies wheezing and Denies other ( shortness of breath) GI Details: See?HPI Details: See?HPI Musc Denies numbness and Denies tingling Neuro Denies dizziness, Denies headache(s), Denies numbness, Denies tingling, Denies paresthesias and Denies weakness Psych Reports anxiety and Denies depression Endo Denies fatigue Aller/Immun Denies wheezing Physical exam (Primary Care) Vital Signs: Last Vital Signs Temp 97.9 F 01/07/25 15:42 Pulse 78 08/31/24 15:42 Resp 14 08/31/24 15:42 BP 120/70 08/31/24 15:42 Pulse Ox 98 08/31/24 15:42 Oxygen Delivery Method Room Air 08/31/24 15:42 BMI result Body Mass Index 25.4 Tobacco/Smoking Status: Tobacco use Status Tobacco use date assessed 01/02/24 08/31/24 15:44 Patient Tobacco Use Status Never used Tobacco 08/31/24 15:44 e-Cigarette/Vaping Use Never Used 08/31/24 15:44 PHQ-9: PHQ-9 Score PHQ-9: Total score 10 08/31/24 15:44 Depression Screening Interpretation: Positive Thrive Assessment: Date of Thrive Assessment Date Thrive assessed 11/25/23 08/31/24 15:44 Currently or been in a relationship where the following occur: No concerns reported Const General: no acute distress and well developed Nutritional Appearance: well nourished Orientation/consciousness: patient oriented x3 HENMT Head: Yes normocephalic and Yes atraumatic Eyes General: appearance normal, both eyes and all related structures Pupils: Equal, round and reactive pupils present EOM: EOMs intact bilaterally Resp Effort & Inspection: normal respiratory effort Auscultation: clear to auscultation bilaterally Cardio Rate: regular rate Rhythm: regular rhythm Heart sounds: S1 normal heart sound present, S2 normal heart sound present, no gallops, no murmurs and no rubs Neuro General: patient oriented x3 and gait normal Cranial nerves: Yes Equal, round and reactive pupils present Psych Affect: Anxious affect present (Mildly?anxious.??Pleasant?and?cooperative.) Coding Level of Care Code Est Pt Level 4 (47257) Diagnoses Depression with anxiety F41.8 Abdominal pain R10.9 Dysuria R30.0 Additional Codes PHQ-9 - 26413 - PHQ-9 Billing: Yes ([id number]) Assessment & Plan Assessment & Plan (1) Depression with anxiety: Code(s): F41.8 - Other specified anxiety disorders Category: Medical Plan: Patient?notes?that?buspirone?as?begun?to?work?though ?marshal?7?is?still?quite?high. Will?increase?dose?from?5?mg?b.i.d.?to?7.5?mg?b.i.d. They?will?let?me?know?if?there?are?any?problems?with?this. They?will?let?me?know?if?they?would?like?ref[facility]or?to?[facility]?outpatient?psychiatric?consult (2) Abdominal pain: Code(s): R10.9 - Unspecified abdominal pain Category: Medical Plan: Ongoing?left?lower?quadrant?pain Referred?to?Gastroenterology?again?as?prior?referral?was?canceled?by?the?GI?gr oup Increase?hydration Try?soluble?fiber Consider?a?symptoms?diet (3) Dysuria: Code(s): R30.0 - Dysuria Category: Medical Plan: Ongoing?dysuria?with?frequency?and?urgency Prior?workups?have?been?unrevealing Referred?to?urology CT/NG was?ordered?bu t?not?performed?by?the?lab?previously.??Patient?can?get?this?done?at?their?conve nience. Orders: Referrals Urology Referral R30.0 - Dysuria, R39.15 - Urgency of urination Gastroenterology Referral R10.9 - Unspecified abdominal pain Medications: Changed From buspirone 5 mg PO BID 30 days 60 tabs 2RF To buspirone 7.5 mg PO BID 30 days 60 tabs 2RF
[2024-08-31 15:42] VITALS: BP 120/70; PULSE 78; RESP 14; TEMP 36.6; O2SAT 98; BMI 25.4
== END 2024-08-31 16:17 | disposition home or self-care (01) ==
PROVIDERS: PCP Family Medicine; Visit Provider Family Medicine
DX: F41.8 Other specified anxiety disorders (principal); R10.9 Unspecified abdominal pain; R30.0 Dysuria

== ENCOUNTER → 2024-08-31 15:30 | Outpatient (BNVA) | payer SELFPAY | PROVIDERS: PCP Family Medicine; Visit Provider Family Medicine | DX: F41.8 Other specified anxiety disorders (principal); R10.9 Unspecified abdominal pain; R30.0 Dysuria; Z79.899 Other long term (current) drug therapy | CPT/HCPCS: 96127 ==

== ENCOUNTER → 2024-09-30 09:44 | Outpatient (BNVA) | payer BC, SELFPAY | PROVIDERS: PCP Family Medicine; Visit Provider Nurse Practitioner Family | DX: R39.15 Urgency of urination (principal); R35.0 Frequency of micturition; R30.0 Dysuria; R39.14 Feeling of incomplete bladder emptying | CPT/HCPCS: 51798; 81003 ==

== ENCOUNTER 2024-12-14 09:25 | Outpatient (REF) | payer BC, SELFPAY ==
--- NOTE | ~2024-12-14 | US_ITS ---
CLINICAL HISTORY: R30.0 - Dysuria US retroperitoneum with color Doppler Comparison: None Findings: Right kidney normal size and echotexture, 11.6 cm length. No hydronephrosis. Normal color flow. No nephrolithiasis. No renal masses. Left kidney normal size and echotexture, 11.8 cm in length. No hydronephrosis. Normal color flow. No nephrolithiasis. No renal masses. Urinary bladder is unremarkable. Prevoid volume 410.0 mL. Postvoid volume 11.3 mL. Ureteral jets are visualized bilaterally Prostate measures 2.9 x 2.1 x 2.9 cm. Prostate volume 9.4 mL Impression: 1. Normal retroperitoneal ultrasound This document has been electronically signed by: Jason Burnham MD on 12/15/2024 08:39:50
== END 2024-12-14 09:26 | disposition home or self-care (01) ==
LOC: HO.US 09:25
PROVIDERS: PCP Family Medicine; Visit Provider Nurse Practitioner Family
DX: R30.0 Dysuria (principal); R39.15 Urgency of urination
CPT/HCPCS: 76770

== ENCOUNTER → 2024-12-14 09:31 | Outpatient (BNV) | payer BC, SELFPAY | PROVIDERS: PCP Family Medicine; Visit Provider Radiology Diagnostic Radiology | DX: R30.0 Dysuria (principal) | CPT/HCPCS: 76770 ==

== ENCOUNTER 2025-03-30 15:38 | Outpatient (AMB) | payer BC, SELFPAY ==
--- NOTE | 2025-03-30 15:55 | MHC.OFFVIS ---
Intake Visit Reasons: follow up / ultrasound(set) Intake Note: Patient is present for US F/U Urology Medication:ESTRADIOL Antibiotic Allergy:NONE Blood Thinner:NONE Executive Pilot Required: No Allergies peanuts Allergy (Uncoded 03/30/25 16:14) Itching Medication List - Last Reconciled 03/30/25 by CIARA Vasquez buspirone 7.5 mg PO BID 30 days estradiol 0.01%(0.1mg/gram) vaginal estradiol cypionate 2 mg IM .QWK needle (disp) 18 G (BD Regular Bevel [place]) As directed needle (disp) 19 G (BD Regular Bevel [place]) As directed needle (disp) 25 gauge (BD Regular Bevel [place]) As directed syringe (disposable) (BD Luer-Shannen Syringe) As directed HPI Comments Details: Valeria is a very pleasant 34-year-old genetic XY/female patient of Dr. Fine. She has a past medical history of depression, anxiety, headaches, and increased micturition. She presents to the office today for follow-up of her ongoing lower urinary tract symptoms. Of note, patient was seen approximately 6 months ago as a new patient for ongoing lower urinary tract symptoms at which time a retroperitoneal ultrasound was ordered for further assessment evaluation. These results were reviewed and communicated with the patient today. 12/17 bilateral kidneys are normal in size and echotexture. No hydronephrosis, hydronephrosis or renal masses noted bilaterally. The urinary bladder is unremarkable. Prostate measures approximately 9 mL. Normal retroperitoneal ultrasound. We did discussed potential causes of lower urinary tract symptoms patient is experiencing. We did discuss potential for prostatitis versus chronic prostatitis all questions were answered. We did discussed further treatment options and risks and benefits of these treatment options. She continues to report feelings of incomplete bladder emptying, urinary urgency, urinary frequency for many years however feels this has worsened over the last 3-4 years. She does report to being sexually active. She discusses having had her transitional surgery in 2018 in [place]. We discussed at length potential causes of these lower urinary tract symptoms she is experiencing as well as further treatment options and risks and benefits of these treatment options. In office urinalysis results reviewed with the patient today. She does report having limited caffeine consumption and does feel this has been slightly helpful. We did discuss potential causes related to prostate. She denies incontinence, nocturia, hematuria, dysuria, foul smelling urine, changes to urinary stream, flank pain, fever, and or chills. She otherwise offers no other issues or concerns at this time. [facility] Medical History Depression Anxiety Generalized headaches Shoulder injury Frequent urination Surgical History H/O vaginoplasty Hx of tonsillectomy Family History Mother Diabetes Father High blood pressure High cholesterol Maternal Grandmother Diabetes Paternal Grandmother Diabetes Maternal Grandfather Diabetes Cancer Paternal Grandfather Lung cancer Social History Housing: Apartment Alcohol intake: current Comment: wine Patient Tobacco Use Status: Never used Tobacco e-Cigarette/Vaping Use: Never Used Substance Use Type: Marijuana service: No Current occupational status: employed 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 Cognitive needs: No Hearing needs: No Vision needs: No Review of Systems Const All systems reviewed & are unremarkable except as noted in HPI and below Physical Exam Const General: cooperative, healthy appearing, comfortable, no acute distress, well developed, alert and awake Orientation/consciousness: patient oriented x3 Limitations: no limitations HEENT Head: Yes normal to inspection, Yes normocephalic and Yes atraumatic Ears: hearing grossly normal bilaterally Eyes General: appearance normal, both eyes and all related structures Neck Neck: Yes normal visual inspection and Yes trachea midline Chest Chest palpation & inspection: normal inspection of the chest Resp Effort & Inspection: normal respiratory effort and able to speak in complete sentences Cardio Rate: regular rate GI Inspection: Yes normal to inspection General: Yes no CVA tenderness Back/Spine/Pelvis Back: no CVA tenderness Skin General skin exam: no rashes or lesions noted Neuro General: patient oriented x3 Extrem General: Yes normal to inspection Psych Appearance: grossly normal and well kempt Mental Status: mental status grossly normal Speech and movement: Normal speech and movement present and Clear speech present Affect: normal affect Attitude: cooperative Thought process: Normal thought process present Thought content: Normal thought content present Insight: Fair insight present (Psych) Judgement: Fair judgement present (Psych) Results AMB Urinalysis, Automated UA Leukoctes 0 Joann/uL Last Edit by Sabina Pham [facility] on 03/30/25 16:11 UA Nitrite Negative Last Edit by Sabina Pham [facility] on 03/30/25 16:11 UA Urobilinogen 0.2 mg/dL Last Edit by Sabina Pham [facility] on 03/30/25 16:11 UA Protein 0 mg/dL Last Edit by Sabina Pham [facility] on 03/30/25 16:11 UA pH 6.0 Last Edit by Sabina Pham [facility] on 03/30/25 16:11 UA Blood 0 Naseem/uL Last Edit by Sabina Pham [facility] on 03/30/25 16:11 UA Specific [place] 1.020 Last Edit by Sabina Pham [facility] on 03/30/25 16:11 UA Ketone Negative Last Edit by Sabina Pham [facility] on 03/30/25 16:11 UA Bilirubin 0 mg/dL Last Edit by Sabina Pham [facility] on 03/30/25 16:11 UA Glucose 0 mg/dL Last Edit by Sabina Pham [facility] on 03/30/25 16:11 Results Reviewed Results Reviewed: Laboratory Last Values Urine pH (Auto) 6.0 03/30/25 16:10 Specific [place] (Auto) 1.020 03/30/25 16:10 Urine Protein (Auto) 0 mg/dL 03/30/25 16:10 Glucose (UA)(Auto) 0 mg/dL 03/30/25 16:10 Urine Ketones (Auto) Negative 03/30/25 16:10 Urine Blood (Auto) 0 Naseem/uL 03/30/25 16:10 Urine Nitrite (Auto) Negative 03/30/25 16:10 Urine Bilirubin (Auto) 0 mg/dL 03/30/25 16:10 Urine Urobilinogen (Auto) 0.2 mg/dL 03/30/25 16:10 Leukocyte Esterase (Auto) 0 Joann/uL 03/30/25 16:10 Date of Service: 12/14/24 Procedure(s): US retroperitoneal comp Findings: Right kidney normal size and echotexture, 11.6 cm length. No hydronephrosis. Normal color flow. No nephrolithiasis. No renal masses. Left kidney normal size and echotexture, 11.8 cm in length. No hydronephrosis. Normal color flow. No nephrolithiasis. No renal masses. Urinary bladder is unremarkable. Prevoid volume 410.0 mL. Postvoid volume 11.3 mL. Ureteral jets are visualized bilaterally Prostate measures 2.9 x 2.1 x 2.9 cm. Prostate volume 9.4 mL Impression: 1. Normal retroperitoneal ultrasound Assessment & Plan Assessment & Plan (1) Frequent urination: Code(s): R35.0 - Frequency of micturition Category: Medical (2) Urgency of micturition: Code(s): R39.15 - Urgency of urination Category: Medical (3) Dysuria: Code(s): R30.0 - Dysuria Category: Medical Plan In office urinalysis results reviewed with the patient today; as noted above. Recent retroperitoneal ultrasound results reviewed with the patient today; as noted above. We did discussed potential causes of lower urinary tract symptoms patient is experiencing as well as further treatment options and risks and benefits of these treatment options. Will refer to pelvic floor therapy for further assessment evaluation. We discussed bladder triggers and irritants. Follow-up in 3-6 months; or sooner with any issues, concerns, and or questions. Orders: Orders AMB Urinalysis Automated Today Z13.9 - Encounter for screening, unspecified PT Evaluation and Treatment Today R30.0 - Dysuria, R35.0 - Frequency of micturition, R39.15 - Urgency of urination Patient Instructions: The patient had an opportunity to ask questions regarding the treatment plan. All questions were answered. Physical exam, labs, and imaging were discussed and reviewed in detail. As well as risks, benefits, and discussion of treatment choices. No major barriers to understanding were identified. The patient expressed understanding and agreement with the above treatment plan. The patient was made aware they should contact our office by phone for worsening of their current condition, the appearance of new symptoms, or with any questions or concerns. Compliance is encouraged with any medications and follow up testing that is ordered. It is a privilege to be allowed the opportunity to participate in? your urological care.? Again, if you have any questions or concerns If you have any questions or concerns please do not hesitate to contact me. The office is [phone]. This note is constructed using voice recognition software. 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 Yours sincerely, GISELA Vasquez-DEISY Coding Level of Care Code Est Pt Level 3 (18195) Diagnoses Frequent urination R35.0 Urgency of micturition R39.15 Dysuria R30.0
== END 2025-03-30 16:38 | disposition home or self-care (01) ==
LOC: HO.HUSH 15:39
PROVIDERS: PCP Family Medicine; Visit Provider Nurse Practitioner Family
DX: R35.0 Frequency of micturition (principal); R39.15 Urgency of urination; R30.0 Dysuria; Z13.9 Encounter for screening, unspecified
CPT/HCPCS: 99213

== ENCOUNTER → 2025-03-30 15:38 | Outpatient (BNVA) | payer BC, SELFPAY | PROVIDERS: PCP Family Medicine; Visit Provider Nurse Practitioner Family | DX: R35.0 Frequency of micturition (principal); R39.15 Urgency of urination; R30.0 Dysuria | CPT/HCPCS: 81003; 99212 ==